=== PATIENT | female | born 1980 | race African-American/Black ===

== ENCOUNTER 2017-02-01 00:54 | Emergency (ER) | payer MEDICARE, OTHER ==
[~2017-02-01] VITALS: Ht 165.1 cm; Wt 154.6 kg
[~2017-02-01 00:54] MED LIST: PREN1TAB22 PO
[2017-02-01] MEDS ORDERED: VITAD1000 PO (01:03)
[2017-02-01] MEDS ORDERED: FERR-89 PO (01:03)
[2017-02-01] MEDS ORDERED: IBUPROFEN 600 MG TABLET PO ONE (03:15)
[2017-02-01 03:35] VITALS: BP 128/61
== END 2017-02-01 03:58 | disposition home or self-care (01) ==
LOC: EMS 00:56
DX: S63.602A Unspecified sprain of left thumb, initial encounter (principal); I51.9 Heart disease, unspecified; W23.0XXA Caught, crushed, jammed, or pinched between moving objects, initial encounter; Y93.89 Activity, other specified; Y92.89 Other specified places as the place of occurrence of the external cause; Y99.8 Other external cause status
CPT/HCPCS: 99284

== ENCOUNTER 2017-09-14 04:45 | Emergency (ER) | payer OTHER ==
[~2017-09-14] VITALS: Ht 165.1 cm; Wt 142.7 kg
[~2017-09-14 04:45] MED LIST changes: +FERR-89 PO; -PREN1TAB22 PO; +VITAD1000 PO
[2017-09-14] MEDS ORDERED: THIA100T67 PO (04:50)
[2017-09-14] MEDS ORDERED: MethylPREDNISolone SOD SUCC 125 MG/2 ML VIAL IVP ONE (05:15)
[2017-09-14] MEDS ORDERED: LORATADINE 10 MG TABLET PO ONE (05:15)
[2017-09-14] MEDS ORDERED: FAMOTIDINE 40 MG in SODIUM CHLORIDE 0.9% 100 ML IV ONE (05:15)
[2017-09-14 05:37] LABS: BASOPHILS % (AUTO) 0.6 % (0.0-2.0); EOSINOPHILS % (AUTO) 2.4 % (1.0-6.0); HEMATOCRIT 36.5 % (36-46); HEMOGLOBIN 12.2 g/dL (12.0-16.0); LYMPHOCYTES # (AUTO) 1.4 K/uL (1.0-4.8); LYMPHOCYTES % (AUTO) 36.8 % (22.0-44.0); MEAN CORPUSCULAR HEMOGLOBIN 28.3 pg (26.0-34.0); MEAN CORPUSCULAR HGB CONC 33.4 G/dL (31.0-37.0); MEAN CORPUSCULAR VOLUME 85 fL (80-100); MONOCYTES # (AUTO) 0.5 K/uL (0.1-1.0); MONOCYTES % (AUTO) 12.1 % (2.0-9.0); NEUTROPHILS # (AUTO) 1.8 K/uL (1.8-7.7); NEUTROPHILS % (AUTO) 48.1 % (40.0-70.0); PLATELET COUNT (AUTO) 180 K/uL (150-450); RED CELL DISTRIBUTION WIDTH 15.3 % (11.5-14.5)
[2017-09-14 05:45] LABS: ANION GAP 10 mmol/L (8-16); CALCIUM, TOTAL 8.8 mg/dL (8.8-10.5); CARBON DIOXIDE 25 mmol/L (22-29); CHLORIDE 104 mmol/L (98-107); CREATININE 0.82 mg/dL (0.60-1.30); GLOMERULAR FILTR. RATE CALC > 60 mL/min (>60); GLUCOSE,RANDOM 88 mg/dL (70-110); POTASSIUM 3.2 mmol/L (3.5-5.1); SODIUM SERUM 139 mmol/L (136-145); UREA NITROGEN, BLOOD 8 mg/dL (7-18)
[2017-09-14 05:50] LABS: ALANINE AMINOTRANSFERASE 16 U/L (12-78); ALBUMIN 3.4 g/dL (3.4-5.0); ALKALINE PHOSPHATASE 55 U/L (46-116); ASPARTATE AMINOTRANSFERASE 14 U/L (15-37); BILIRUBIN,TOTAL 0.5 mg/dL (0.1-1.0); TOTAL PROTEIN, SERUM 6.7 g/dL (6.4-8.2)
[2017-09-14 05:57] LABS: PLATELET MORPHOLOGY COMMENT GIANT PLTS PRESENT
[2017-09-14] MEDS ORDERED: HydrOXYzine HCL 50 MG TABLET PO ONE (06:30)
[2017-09-14] MEDS ORDERED: POTASSIUM CHLORIDE 20 MEQ ER TABLET PO ONE (08:15)
[2017-09-14 08:44] VITALS: BP 142/82
== END 2017-09-14 08:46 | disposition home or self-care (01) ==
LOC: EMS 04:46
DX: T78.40XA Allergy, unspecified, initial encounter (principal); I51.9 Heart disease, unspecified; E66.9 Obesity, unspecified; Z68.43 Body mass index [BMI] 50.0-59.9, adult; Z88.8 Allergy status to other drugs, medicaments and biological substances; X58.XXXA Exposure to other specified factors, initial encounter
CPT/HCPCS: 36415; 80053; 84703; 85025; 96365; 96375; 99284; J2930; J3490; J7050